=== PATIENT | male | born 2005 | race Caucasian/White ===

== ENCOUNTER 2024-06-01 10:14 | Emergency (ER) | payer OTHER ==
[2024-06-01 10:27] VITALS: BP 156/90; O2SAT 97
--- NOTE | 2024-06-01 11:11 | ED Physician Documentation ---
PD HPI ABD PAIN - Stated complaint Stated Complaint: VOMITING,BLOOD - Chief complaint Chief Complaint: Abd Pain - History obtained from History obtained from: Patient - Additional information Additional information: Otherwise healthy 19-year-old gentleman who is active duty in the [employer] drank some alcohol last night. On arrival to work this morning he started vomiting and feeling nauseous. On the third episode of vomiting it was blood-tinged. He has minimal abdominal pain with this. No sick contacts. No fevers. All PD PAST MEDICAL HISTORY - Past Medical History Past Medical History: No - Past Surgical History Past Surgical History: No - Present Medications Home Medications: Ambulatory Orders Medication Instructions Recorded Confirmed Ascorbic Acid [Vitamin C] 500 mg PO DAILY 06/01/24 06/01/24 Metoclopramide [Reglan] 10 mg PO Q6H PRN #20 tablet 06/01/24 Multivitamin 1 each PO DAILY 06/01/24 06/01/24 Omeprazole 40 mg PO DAILY #30 cap 06/01/24 - Allergies Allergies/Adverse Reactions: Allergies Allergy/AdvReac Type Severity Reaction Status Date / Time No Known Drug Allergies Allergy Verified 06/01/24 10:25 - Social History Does the pt smoke?: No Smoking Status: Never smoker Does the pt drink ETOH?: Yes Does the pt have substance abuse?: No - Immunizations Immunizations are current?: Yes PD ED PE NORMAL - Vitals Vital signs reviewed: Yes - General General: Alert and oriented X 3, No acute distress - Abdomen Abdomen: Normal bowel sounds, Soft, Non tender - Neuro Neuro: Alert and oriented X 3 Eye Opening: Spontaneous Motor: Obeys Commands Verbal: Oriented GCS Score: 15 Results - Vitals Vitals: Vital Signs - 24 hr 06/01/24 10:18 Temperature 36.7 C Heart Rate 86 Respiratory 18 Rate Blood Pressure 156/90 H O2 Saturation 97 Oxygen O2 Source Room air - Labs Labs: Laboratory Tests 06/01/24 10:48 Sodium 138 Potassium 4.2 Chloride 102 Carbon Dioxide 30 Anion Gap 6.0 BUN 10 Creatinine 1.0 Estimated GFR (MDRD) 95 Glucose 108 H Calcium 10.1 Total Bilirubin 1.1 H AST 15 ALT 15 Alkaline Phosphatase 82 Total Protein 7.7 Albumin 5.0 Globulin 2.7 Albumin/Globulin Ratio 1.9 Lipase < 10 L Ethyl Alcohol < 10.0 PD Medical Decision Making - ED course ED course: 19-year-old gentleman went drinking last night and this morning woke up hungover and now has blood-tinged emesis after vomiting normal food a couple of times. This is most consistent with gastritis or Caroline-Wetzel tear. Benign exam. Departure - Departure Disposition: 01 Home, Self Care Clinical Impression: Vomiting, Hematochezia Condition: Good Record reviewed to determine appropriate education?: Yes Instructions: ED Nausea Vomiting Prescriptions: Omeprazole 40 mg PO DAILY #30 cap Metoclopramide [Reglan] 10 mg PO Q6H PRN #20 tablet PRN Reason: nausea or headache Comments: I sent your prescription electronically to the [facility] in [place]. For the rest of the day rest and sip clear fluids. I would not try eating anything until this evening. Avoid alcohol. Also avoid heavy or spicy food and also avoid nicotine. Call your doctor to arrange a follow-up appointment, make the next available appointment. In the interim, return anytime if worse or if new symptoms develop. Forms: Activity restrictions Discharge Date/Time: 06/01/24 12:05
[2024-06-01] MEDS: PANTOPRAZOLE 40 MG VIAL IVP STA (11:18)
[2024-06-01] MEDS: SODIUM CHLORIDE 0.9% 1,000 ML IV STA (11:18)
[2024-06-01] MEDS: METOCLOPRAMIDE 10 MG/2 ML VIAL IVP STA (11:18)
[2024-06-01 11:23] LABS: ALBUMIN/GLOBULIN RATIO 1.9 (1.0-2.2); ALKALINE PHOSPHATASE 82 IU/L (42-121); ALT ALANINE AMINOTRANSFERASE 15 IU/L (10-60); AST ASPARTATE AMINOTRANSFERASE 15 IU/L (10-42); BILIRUBIN,TOTAL 1.1 mg/dL (0.2-1.0); BUN - BLOOD UREA NITROGEN 10 mg/dL (6-20); CALCIUM 10.1 mg/dL (8.5-10.3); CARBON DIOXIDE - CO2 30 mmol/L (21-32); CHLORIDE 102 mmol/L (101-111); ETOH - ETHANOL < 10.0 mg/dL; GFR - MDRD 95 (>89); GLUCOSE 108 mg/dL (74-104); POTASSIUM 4.2 mmol/L (3.5-4.5); SODIUM 138 mmol/L (135-145); TOTAL PROTEIN 7.7 g/dL (6.4-8.9)
[2024-06-01 11:30] LABS: LIPASE < 10 U/L (11-82)
== END 2024-06-01 12:05 | disposition home or self-care (01) ==
LOC: ED 10:14
DX: K92.0 Hematemesis (principal)
CPT/HCPCS: 36415; 80053; 82077; 83690; 99283; J2765